=== PATIENT | female | born 1960 | race Caucasian/White ===

== ENCOUNTER 2019-01-25 21:29 | Emergency (ER) | payer OTHER ==
[~2019-01-25] VITALS: Ht 170.2 cm; Wt 59.0 kg
[~2019-01-25 21:29] MED LIST: CARAFATE1 G PO; CELEBREX100 MG PO; DIAZEPAM10 MG PO; INTESTINEX1 CAP PO; LEVSIN/SL0.125 MG PO; PEPCID40 MG PO; PHENERGAN25 MG PO; PNEU16DI2; RELPAX40 MG PO; SYNTHROID125 MCG; ZANTAC300 MG PO; ZOCOR5 MG
[2019-01-25] MEDS ORDERED: LIPITOR20 MG (21:40)
[2019-01-26] MEDS ORDERED: RELPAX40 MG PO (02:58)
== END 2019-01-26 03:02 | disposition home or self-care (01) ==
LOC: ER 21:29
DX: G43.909 Migraine, unspecified, not intractable, without status migrainosus (principal); R11.11 Vomiting without nausea

== ENCOUNTER → 2021-08-17 | Emergency (ER) | payer OTHER ==
[~2021-08-17] VITALS: Ht 170.2 cm; Wt 59.0 kg
[~2021-08-17] MED LIST changes: +EMGALITY S120 MG/1 M; +LIPITOR20 MG; +NURTEC ODT75 MG
== END | disposition left against medical advice (07) ==
LOC: ER 23:21
DX: Z53.21 Procedure and treatment not carried out due to patient leaving prior to being seen by health care provider (principal)

== ENCOUNTER 2023-04-20 18:26 | Emergency (ER) | payer OTHER ==
[~2023-04-20] VITALS: Ht 170.2 cm; Wt 59.0 kg
[2023-04-20] MEDS ORDERED: UBRELVY50 MG PO (18:35)
== END 2023-04-20 20:27 | disposition home or self-care (01) ==
LOC: ER 18:26
DX: S60.511A Abrasion of right hand, initial encounter (principal); W18.39XA Other fall on same level, initial encounter; Y93.89 Activity, other specified; Y92.89 Other specified places as the place of occurrence of the external cause